=== PATIENT | female | born 1980 | race Caucasian/White ===

== ENCOUNTER 2021-01-31 05:40 | Day surgery (SDC) | payer OTHER ==
[2021-01-31] MEDS ORDERED: Lactated Ringers 1,000 ML IV SCH (07:00)
[2021-01-31] MEDS ORDERED: DIPRIVAN 200 MG/20 ML IV ONE (08:30)
[2021-01-31 09:20] VITALS: BP 113/75; PULSE 74; O2SAT 100
--- NOTE | 2021-01-31 11:09 | OP ---
SURGERY DATE/TIME: 01/31/2021 0807 PREOPERATIVE DIAGNOSES: 1) Abdominal pain. 2) Blood in the stool. POSTOPERATIVE DIAGNOSES: 1) Moderate gastritis. 2) Proctitis. 3) Diverticulosis of sigmoid colon. PROCEDURES: 1) EGD with cold forceps biopsy. 2) Colonoscopy with cold forceps biopsy. SURGEON: Dr. Rodriguez. ANESTHESIA: MAC. Medications given by anesthesia department. HISTORY: The patient is a 40 year-old white female who presents now for endoscopic evaluation with abdominal pain particularly in the epigastric region and she has been noting blood in the stool which was confirmed with heme-positive stool. The patient is felt to need have endoscopic evaluation. She was appraised of the risks of the procedure including the risk of perforation, phlebitis, untoward reaction to medication, bleeding and missed lesions. The patient verbalized her understanding and desired to have the procedure performed. DESCRIPTION OF PROCEDURE: The patient was given the medications by the anesthesia department. She had continuous pulse oximetry, ECG monitoring, intermittent blood pressure monitoring and tidal CO2 monitoring during the examination. She was placed in the left lateral decubitus position. A bite block was placed. The flexible Olympus gastroscope was used to intubate the oropharynx. A view of the larynx was normal. The scope was easily introduced in the esophagus which appeared to be essentially normal throughout its length. The stomach was entered where normal gastric rugal folds were seen and these distended nicely with insufflation of air. The scope was passed along the greater curvature of the stomach to the antrum. Pylorus encountered and intubated. Duodenum inspected and found to be normal. The scope is withdrawn towards the stomach. Again retroflex view was obtained of the lesser curvature, fundus and cardia regions of the stomach and these appeared to be essentially normal. The scope was then redirected to the gastric antrum. Biopsies were obtained from the area that appeared to be moderately erythematous. No erosions, lesions or ulcerations however were noted. Cold biopsies were obtained to rule out the presence of Helicobacter pylori-type organisms and to confirm the presence of gastritis. The scope was then removed from the patient. Next, a digital rectal examination was performed and revealed normal anal sphincter tone and no masses. The flexible Olympus pediatric colonoscope was used to intubate the rectum. A view of the colon was developed sequentially to the cecum including a short distance into the terminal ileum. Upon insertion and withdrawal, including a retroflex view in the rectum, there was noted to be what appeared to be some proctitis and there was moderate sigmoid diverticulosis present. Biopsies were obtained of the terminal ileum and in the rectum to rule out the presence of underlying inflammatory bowel disease. The scope was removed from the patient who tolerated the procedure well and was sent back to OP recovery in good condition. The prep was noted to be good.
== END 2021-01-31 09:30 | disposition home or self-care (01) ==
LOC: SDC 05:40
PROVIDERS: ATTEND Family Medicine
DX: K29.70 Gastritis, unspecified, without bleeding (principal); K92.1 Melena; R10.9 Unspecified abdominal pain; K62.89 Other specified diseases of anus and rectum; K57.30 Diverticulosis of large intestine without perforation or abscess without bleeding
CPT/HCPCS: J2704

== ENCOUNTER 2024-10-21 05:05 | Emergency (ER) | payer SELFPAY ==
[2024-10-21 05:19] VITALS: TEMP 98.4
--- NOTE | 2024-10-21 05:55 | ERPHSYRPT ---
- History of Present Illness Historian: patient Exam Limitations: no limitations Patient Subjective Stated Complaint: c/o left side abdominal pain Triage Nursing Assessment: Patient brought self to ED with c/o of abdominal pain that she is rtaing 06/06 that starts in her upper left quad and radiates down. patient's last BM and oral intake was yesterday. patient has bowel sounds in all 4 quads, denies vomitibg and diarrhea,. nontender with palpation, patient's vitals wnl, skin w/n/d, gait steady, patient doesn't appear to be in any distress at this time. Timing/Duration: today, hour(s) (3h) Activities at Onset: sleep Quality: sharpness Abdominal Pain Onset Location: periumbilical Pain Radiation: no radiation Severity of Pain-Max: moderate Severity of Pain-Current: moderate Modifying Factors: Improves With: nothing Associated Symptoms: No chest pain, No diaphoresis, No diarrhea, No fever/chills, No nausea, No vomiting Previous symptoms: no prior history Hx Tetanus, Diphtheria Vaccination/Date Given: Yes Hx Influenza Vaccination/Date Given: No Hx Pneumococcal Vaccination/Date Given: No <AMBER SCHROEDER - Last Filed: 10/21/24 06:46> <NALINI JASSO - Last Filed: 10/21/24 08:50> - History of Present Illness Time Seen by Provider: 10/21/24 05:42 Physician History: 43yo f presents via private vehicle for periumbilical pain that she reports started roughly 3h [employer], reports it woke her up from sleep. Pt denies any n/v/d. Pt reports the pain is sharp in nature, radiates several inches down from her umbilicus. Pt denies any vaginal bleeding or abdominal cramping. Pt reports hx of total hysterectomy > 10yrs ago, cholecystectomy > 5yrs ago. Pt denies any cp, sob. (AMBER SCHROEDER) Allergies/Adverse Reactions: No Known Drug Allergies Allergy (Verified 10/21/24 05:20) Home Medications: Levothyroxine Sodium [Synthroid] 50 mcg PO DAILY 08/20/14 [History] clonazePAM [Klonopin] 1 mg PO Q8HPRN PRN 08/20/14 [History] Venlafaxine HCl [Venlafaxine HCl ER] 150 mg PO DAILY 01/13/21 [History] Travel Risk - International Travel Have you traveled outside of the country in past 3 weeks: No - Emerging Infectious Disease Are you exhibiting symptoms associated with any current EIDs: Yes Symptoms: Abdominal Pain <AMBER SCHROEDER - Last Filed: 10/21/24 06:46> - Review of Systems Constitutional: No Symptoms Respiratory: No Symptoms Cardiac: No Symptoms Abdominal/Gastrointestinal: Abdominal Pain, No Nausea, No Vomiting, No Diarrhea, No Constipation, No Hematemesis, No Hematochezia, No Melena, No Appetite Changes Genitourinary Symptoms: No Symptoms <AMBER SCHROEDER - Last Filed: 10/21/24 06:46> - Past Medical History Pertinent Past Medical History: Yes Neurological History: Migraines ENT History: No Pertinent History Cardiac History: No Pertinent History Respiratory History: No Pertinent History Endocrine Medical History: Hypothyroidism Musculoskeletal History: No Pertinent History GI Medical History: GERD, Gallbladder Disease History: No Pertinent History Psycho-Social History: Anxiety, Depression Female Reproductive Disorders: Other Other Medical History: ANXIETY, DEPRESSION - Past Surgical History Past Surgical History: Yes Neuro Surgical History: No Pertinent History Cardiac: No Pertinent History Respiratory: No Pertinent History Gastrointestinal: Cholecystectomy Genitourinary: No Pertinent History Musculoskeletal: No Pertinent History Female Surgical History: Section, Hysterectomy Other Surgical History: 2 reconstructive surgery on nose, kidney biopsy in 2021, x 3 - Female History Hx Last Menstrual Period: total hysterectomy Hx Now: No - Social History Smoking Status: Never smoker Exposure to second hand smoke: No Drug Use: none - Social Determinants of Health Will the patient participate in the screening: Yes Do you worry about a steady place to live?: No Do you have any problems with any of the following?: No known problems In the past 12 months,have you had to go without utilities?: No Transportation Issues: No Has anyone in your support network made you feel unsafe?: No Have you or anyone in your house had to go without enough: No <AMBER SCHROEDER - Last Filed: 10/21/24 06:46> - Physical Exam General Appearance: no apparent distress, alert Respiratory Exam: normal breath sounds, lungs clear, airway intact, No chest tenderness, No respiratory distress Cardiovascular Exam: regular rate/rhythm, normal heart sounds, normal peripheral pulses, capillary refill <2 sec Gastrointestinal/Abdomen Exam: soft, normal bowel sounds, No tenderness, No distention, No guarding, No rebound SpO2 Interpretation: normal SpO2: 98 O2 Delivery: Room Air <AMBER SCHROEDER - Last Filed: 10/21/24 06:46> - Nursing Vital Signs Nursing Vital Signs: Initial Vital Signs Temperature 98.4 F 10/21/24 05:12 Pulse Rate 87 10/21/24 05:12 Respiratory Rate 20 10/21/24 05:12 Blood Pressure 143/86 10/21/24 05:12 O2 Sat by Pulse Oximetry 98 10/21/24 05:12 Pain Scale Pain Intensity 5 - Course EKG Interpreted by Me: RATE (78), Sinus Rhythm, Other (qtcb 421, not suggestive of acute ischemia) <ALEXNADREAMBER WERO - Last Filed: 10/21/24 06:46> <NALINI JASSO - Last Filed: 10/21/24 08:50> Ordered Tests: Active Orders 24 hr Category Date Time Status ABDOMEN AND PELVIS W CONTRAST [CT] Stat Exams 10/21/24 05:44 Completed CHEST 2 VIEWS (PA AND LAT) Stat Exams 10/21/24 05:44 Completed CBC W DIFF Stat Lab 10/21/24 06:20 Completed CMP Stat Lab 10/21/24 06:20 Completed HCG QUALITATIVE, SERUM Stat Lab 10/21/24 06:20 Completed LIPASE Stat Lab 10/21/24 06:20 Completed TROPONIN Q4H Lab 10/21/24 06:20 Completed TROPONIN Q4H Lab 10/21/24 09:45 Ordered TROPONIN Q4H Lab 10/21/24 13:45 Ordered UA W/RFX UR CULTURE Stat Lab 10/21/24 05:57 Completed Medication Summary Discontinued Medications Generic Name Dose Route Start Last Admin Trade Name Freq PRN Reason Stop Dose Admin Metronidazole 500 mg in 100 mls @ 200 mls/hr 10/21/24 07:49 10/21/24 07:57 Flagyl 500 Mg Ivpb IV 10/21/24 08:18 200 ml/hr STAT STA 200 mls/hr Administration Cefazolin Sodium 2 gm in 100 mls @ 200 mls/hr 10/21/24 07:49 10/21/24 08:33 Cefazolin 2 Gm/100 Ml Nacl IV 10/21/24 08:18 200 ml/hr STAT STA 200 mls/hr Administration Metronidazole Confirm 10/21/24 07:55 Flagyl 500 Mg Ivpb Administered 10/21/24 07:56 Dose 500 mg in 100 mls @ ud IV .STK-MED ONE Cefazolin Sodium Confirm 10/21/24 08:33 Cefazolin 2 Gm/100 Ml Nacl Administered 10/21/24 08:34 Dose 2 gm in 100 mls @ ud IV .STK-MED ONE Morphine Sulfate 2 mg 10/21/24 06:35 10/21/24 06:38 Morphine Sulfate 2 Mg/Ml Inj IV 10/21/24 06:36 2 mg STAT ONE Administration Morphine Sulfate Confirm 10/21/24 06:37 Morphine Sulfate 2 Mg/Ml Inj Administered 10/21/24 06:38 Dose 2 mg .ROUTE .STK-MED ONE Ondansetron HCl 4 mg 10/21/24 05:43 10/21/24 06:39 Ondansetron Hcl 4 Mg/2 Ml Vial IV 10/21/24 05:44 4 mg STAT ONE Administration Ondansetron HCl Confirm 10/21/24 06:37 Ondansetron Hcl 4 Mg/2 Ml Vial Administered 10/21/24 06:38 Dose 4 mg .ROUTE .STK-MED ONE Lab/Rad Data: Laboratory Result Diagrams 10/21/24 06:20 10/21/24 06:20 Laboratory Results 10/21/24 10/21/24 10/21/24 Range/Units 06:20 06:20 06:20 WBC (3.98-10.04) x10^3/uL RBC (3.93-5.22) x10^6/uL Hgb (11.2-15.7) g/dL Hct (34.1-44.9) % MCV (79.4-94.8) fL MCH (25.6-32.2) pg MCHC (32.2-35.5) g/dL RDW (11.7-14.4) % Plt Count (182-369) x10^3/uL MPV (9.4-12.3) fL Gran % (34.0-71.1) % Immature Gran % (Auto) (0.001-0.429) % Nucleat RBC Rel Count (0.00-0.2) % Eos # (Auto) (0.04-0.36) x10^3/uL Immature Gran # (Auto) (0.001-0.031) x10^3u/L Absolute Lymphs (auto) (1.18-3.74) x10^3/uL Absolute Monos (auto) (0.24-0.86) x10^3/uL Absolute Nucleated RBC (0.00-0.012) x10^3u/L Lymphocytes % (19.3-51.7) % Monocytes % (4.7-12.5) % Eosinophils % (0.7-5.8) % Basophils % (0.1-1.2) % Absolute Granulocytes (1.56-6.13) x10^3/uL Basophils # (0.01-0.08) x10^3/uL Sodium 136 (135-145) mmol/L Potassium 4.6 (3.5-5.1) mmol/L Chloride 101 (98-107) mmol/L Carbon Dioxide 31 H (22-30) mmol/L Anion Gap 8.8 (5-15) MEQ/L BUN 17 (7-17) mg/dL Creatinine 0.72 (0.52-1.04) mg/dL Estimated GFR 105.7 ML/MIN Glucose 113 H (74-106) mg/dL Calcium 9.4 (8.4-10.2) mg/dL Total Bilirubin 0.30 (0.2-1.3) mg/dL AST 31 (14-36) U/L ALT 47 H (0-35) U/L Alkaline Phosphatase 92 (38-126) U/L Troponin I < 0.012 (0.000-0.033) ng/mL Serum Total Protein 6.6 (6.3-8.2) g/dL Albumin 3.9 (3.5-5.0) g/dL Lipase 114 (23-300) U/L Serum HCG, Qual NEGATIVE (NEGATIVE) Urine Color (Yellow) Urine Appearance (Clear) Urine pH (4.6-8.0) Ur Specific [place] (1.005-1.030) Urine Protein (Negative) Urine Glucose (UA) (Negative) mg/dL Urine Ketones (Negative) Urine Blood (Negative) Urine Nitrite (Negative) Urine Bilirubin (Negative) Urine Urobilinogen (0.2) mg/dL Ur Leukocyte Esterase (Negative) U Hyaline Cast (Auto) (0-2) /LPF Urine Microscopic RBC (0-5) /HPF Urine Microscopic WBC (0-5) /HPF Ur Epithelial Cells (None Seen) /HPF Urine Bacteria (None Seen) /HPF Urine Culture Reflexed (NO) 10/21/24 10/21/24 Range/Units 06:20 05:57 WBC 14.0 H (3.98-10.04) x10^3/uL RBC 4.11 (3.93-5.22) x10^6/uL Hgb 12.2 (11.2-15.7) g/dL Hct 36.8 (34.1-44.9) % MCV 89.5 (79.4-94.8) fL MCH 29.7 (25.6-32.2) pg MCHC 33.2 (32.2-35.5) g/dL RDW 12.4 (11.7-14.4) % Plt Count 303 (182-369) x10^3/uL MPV 10.0 (9.4-12.3) fL Gran % 75.0 H (34.0-71.1) % Immature Gran % (Auto) 0.5 H (0.001-0.429) % Nucleat RBC Rel Count 0.0 (0.00-0.2) % Eos # (Auto) 0.32 (0.04-0.36) x10^3/uL Immature Gran # (Auto) 0.07 H (0.001-0.031) x10^3u/L Absolute Lymphs (auto) 2.16 (1.18-3.74) x10^3/uL Absolute Monos (auto) 0.88 H (0.24-0.86) x10^3/uL Absolute Nucleated RBC 0.00 (0.00-0.012) x10^3u/L Lymphocytes % 15.5 L (19.3-51.7) % Monocytes % 6.3 (4.7-12.5) % Eosinophils % 2.3 (0.7-5.8) % Basophils % 0.4 (0.1-1.2) % Absolute Granulocytes 10.47 H (1.56-6.13) x10^3/uL Basophils # 0.06 (0.01-0.08) x10^3/uL Sodium (135-145) mmol/L Potassium (3.5-5.1) mmol/L Chloride (98-107) mmol/L Carbon Dioxide (22-30) mmol/L Anion Gap (5-15) MEQ/L BUN (7-17) mg/dL Creatinine (0.52-1.04) mg/dL Estimated GFR ML/MIN Glucose (74-106) mg/dL Calcium (8.4-10.2) mg/dL Total Bilirubin (0.2-1.3) mg/dL AST (14-36) U/L ALT (0-35) U/L Alkaline Phosphatase (38-126) U/L Troponin I (0.000-0.033) ng/mL Serum Total Protein (6.3-8.2) g/dL Albumin (3.5-5.0) g/dL Lipase (23-300) U/L Serum HCG, Qual (NEGATIVE) Urine Color Yellow (Yellow) Urine Appearance Clear (Clear) Urine pH 6.5 (4.6-8.0) Ur Specific [place] 1.015 (1.005-1.030) Urine Protein Negative (Negative) Urine Glucose (UA) Negative (Negative) mg/dL Urine Ketones Negative (Negative) Urine Blood Negative (Negative) Urine Nitrite Negative (Negative) Urine Bilirubin Negative (Negative) Urine Urobilinogen 0.2 (0.2) mg/dL Ur Leukocyte Esterase Negative (Negative) U Hyaline Cast (Auto) NONE SEEN (0-2) /LPF Urine Microscopic RBC 0-2 (0-5) /HPF Urine Microscopic WBC 0-2 (0-5) /HPF Ur Epithelial Cells None Seen (None Seen) /HPF Urine Bacteria None Seen (None Seen) /HPF Urine Culture Reflexed NO (NO) CLINICAL HISTORY: upper abdominal pain COMPARISON: None. TECHNIQUE: A CT scan of the abdomen and pelvis was performed with IV contrast. 80cc of isovue 370 was administered intravenously. One of the following dose reduction techniques was utilized for this exam: Automated exposure control, adjustment of the mA and/or kV according to patient size, use of iterative reconstruction FINDINGS: The liver is normal in size. A relatively hypodense focal lesion is seen in segment VII in the portovenous phase (~ 15 x 12 mm in size) showing contrast filling-in in the delayed phase suggesting a hemangioma. No diffuse parenchymal abnormality. The portal vein, intrahepatic biliary radicals, and the bile ducts are normal. The spleen, pancreas, and adrenal glands are unremarkable. The kidneys are unremarkable. They are normal in size and shape. No calculi or hydronephrosis. Both kidneys demonstrate good excretory function. The gallbladder is surgically removed. A segment of the descending colon shows circumferential wall thickening on the background of multiple diverticula with extensive karol colonic fatty stranding denoting acute diverticulitis. No free air or associated collections at the time of scan. Non-complicated diverticula is seen in other large bowel segments. PatientID: [id number] Patient Name: ABAD SALCEDO Exam Date: 10/21/2024 Procedure: ABDOMEN AND PELVIS W CONTRAST page 1 of 2 No signs of acute appendicitis. No evidence of bowel obstruction. No suspiciously enlarged retroperitoneal lymph nodes and few small nodes are noted however likely reactionary in nature. Possible trace-free fluid in the pelvis. Narrow-neck fat-containing umbilical hernia (non-complicated). The urinary bladder is unremarkable. The uterus is not visualized. No gross adnexal lesions. No gross lytic or sclerotic lesions in the visualized spine. Scanned lung bases are unremarkable. IMPRESSION: 1. Acute diverticulitis involving the descending colon, no free air or loculated collections at time of the scan. 2. Hepatic focal lesion with perfusion parameters suggestive of a hemangioma. [facility] ER was called at [phone] at 6:29 AM CODE NUMBER STAMPER, 10/21/2024, and Stefanie (nurse) was informed regarding the significant medical findings. (NALINI JASSO) - Progress Progress: improved, pain not gone completely Counseled pt/family regarding: lab results, diagnosis, need for follow-up, rad results <NALINI JASSO - Last Filed: 10/21/24 08:50> Medical Desision Making - Diagnostic Testing Radiological Interpretation: Reviewed by me, Teleradiologist Report - Risk of complications Minimal Risk: Minimal risk of morbidity <AMBER SCHROEDER - Last Filed: 10/21/24 06:46> - Risk of complications The pt has a mod risk of morbidity or mortality based on: Need for prescription drug management <NALINI JASSO - Last Filed: 10/21/24 08:50> - Departure Departure Disposition: Home Critical Care Time: No <AMBER SCHROEDER - Last Filed: 10/21/24 06:46> - Departure Departure Disposition: Home <NALINI JASSO - Last Filed: 10/21/24 08:50> - Departure Clinical Impression: Periumbilical pain, Acute diverticulitis Condition: Stable Referrals: MADYSON LEI [Primary Care Provider] - Follow up/PCP as directed Instructions: Diverticulitis, Diverticulitis - Discharge instructions Additional Instructions: Discharge/Care Plan ABAD SALCEDO was seen on 10/21/24 in the Emergency Room. The patient was counseled regarding Diagnosis,Lab results, Imaging studies, need for follow up and when to return to the Emergency Room. Prescriptions given: Discharge Note I have spoken with the patient and/or caregivers. I have explained the patient's condition, diagnosis and treatment plan based on the information available to me at this time. I have answered the patient's and/or caregiver's questions and addressed any concerns. The patient and/or caregivers have as good understanding of the patient's diagnosis, condition and treatment plan as can be expected at this point. The vital signs have been stable. The patient's condition is stable and appropriate for discharge from the emergency department. The patient will pursue further outpatient evaluation with the primary care physician or other designated or consulting physician as outlined in the discharge instructions. The patient and/or caregivers are agreeable to this plan of care and follow-up instructions have been explained in detail. The patient and/or caregivers have received these instruction. The patient/and or caregivers are aware that any significant change in condition or worsening of symptoms should prompt an immediate return to this or the closest emergency department or call 911. ABAD SALCEDO was seen on 10/21/24 n the Emergency Room. At that time you were treated for an emergent condition, during your visit Laboratory, Radiology and/or other procedures may have been ordered. It is very important that you follow-up with your Primary Care Physician MADYSON LEI within the next 24-48 hours to review your Emergency Room visit and the final results of testing that was ordered. Some test results such as Urine Cultures, Blood Cultures, and other cultures if ordered will not be finalized for 24-48 hours. If you do not have a Primary Care Provider please call the medical records d epartment at [phone] ext [phone] to obtain a copy of your results or you may sign into our patient portal to obtain these results by visiting us @ [email or web address] and completing the following steps: 1. Click on the Patient Portal link 2. Click the Patient Self Enrollment Link to complete the enrollment form and entering your 3. Once the enrollment form is completed you will receive an email with a temporary ID and password at the email address you provided. 4. Next choose a user name and password. Your user name must be at least 4 characters long and your password must be at least 4 characters long. 5. Choose a security question from the list and provide your answer to the question. If you already have signed into the Health Portal you may access your Health Care Information 20/05 by the following steps: 1. Login to our website @ [email or web address] 2. Enter your original user name and password. FAQS [facility] Health Portal is an online tool that contains your Lab Results, Radiology Reports, Visit History, Discharge Instructions and Health Summary Lab and Radiology Results will not be available for 72 hours on the portal. The Portal is a secure site, passwords are encryted and URLs are re-written so they cannot be copied and pasted. You and authorized family members are the only ones who can access your Portal. Also there is a timeout feature that protects your information if you leave the Portal page open. If you have technical difficulty please use the Contact Us link on the page this will allow you to submit any questions you have regarding the Portal or you may contact the Medical Record Department at [phone] ext [phone]. Prescriptions: Ciprofloxacin [Cipro 500 MG] 500 mg PO BIDAC #20 tablet Metronidazole 500 mg [Flagyl 500 MG] 500 mg PO TID #21 tablet
[2024-10-21 06:28] LABS: Appearance Clear (Clear); Bacteria None Seen /HPF (None Seen); Bilirubin Negative (Negative); Blood Negative (Negative); Epithelial Cells None Seen /HPF (None Seen); Glucose, Urine Negative (Negative); Hyaline Casts NONE SEEN /LPF (0-2); Ketones Negative (Negative); Leukocyte Esterase Negative (Negative); Nitrite Negative (Negative); Ph 6.5 (4.6-8.0); Protein,Urine Dip Negative (Negative); RBC 0-2 /HPF (0-5); Specific Gravity 1.015 (1.005-1.030); Urobilinogen 0.2 mg/dL (0.2); WBC 0-2 /HPF (0-5)
[2024-10-21 06:29] LABS: Absolute Neutrophil Ct (ANC) 10.47 x10^3/uL (1.56-6.13); BASOPHIL % 0.4 % (0.1-1.2); Basophil (Absolute #) 0.06 x10^3/uL (0.01-0.08); Eosinophil % 2.3 % (0.7-5.8); Eosinophil (Absolute #) 0.32 x10^3/uL (0.04-0.36); Hematocrit 36.8 % (34.1-44.9); Hemoglobin 12.2 g/dL (11.2-15.7); IMMATURE GRAN # 0.07 x10^3u/L (0.001-0.031); IMMATURE GRAN % 0.5 % (0.001-0.429); Lymphocyte (Absolute #) 2.16 x10^3/uL (1.18-3.74); Lymphocytes % 15.5 % (19.3-51.7); Mean Cell Volume 89.5 fL (79.4-94.8); Mean Corpuscular Hemoglobin 29.7 pg (25.6-32.2); Mean Corpuscular Hgb Concent. 33.2 g/dL (32.2-35.5); Monocyte (Absolute #) 0.88 x10^3/uL (0.24-0.86); Monocytes % 6.3 % (4.7-12.5); Platelet Count 303 x10^3/uL (182-369); Red Blood Count 4.11 x10^6/uL (3.93-5.22); Red Cell Distribution Width 12.4 % (11.7-14.4)
[2024-10-21] MEDS ORDERED: Zofran 4 MG/2 ML VIAL ONE (06:37)
[2024-10-21] MEDS ORDERED: MORPHINE SULFATE 2 MG INJ ONE (06:37)
[2024-10-21] MEDS: MORPHINE SULFATE 2 MG INJ IV ONE (06:38)
[2024-10-21] MEDS: Zofran 4 MG/2 ML VIAL IV ONE (06:39)
[2024-10-21 06:46] LABS: ALBUMIN 3.9 g/dL (3.5-5.0); ANION GAP 8.8 MEQ/L (5-15); BILIRUBIN,TOTAL 0.3 mg/dL (0.2-1.3); Calcium 9.4 mg/dL (8.4-10.2); Creatinine 1 0.72 mg/dL (0.52-1.04); EST GLOMERULAR FILTRATION RATE 105.7 ML/MIN; Potassium 4.6 mmol/L (3.5-5.1); Total Protein 6.6 g/dL (6.3-8.2)
[2024-10-21 06:54] LABS: HCG SERUM TEST NEGATIVE (NEGATIVE)
[2024-10-21 07:17] VITALS: PULSE 86; RESP 17
--- NOTE | 2024-10-21 07:39 | XRAY ---
CLINICAL HISTORY: upper abdominal pain COMPARISON: None. TECHNIQUE: A CT scan of the abdomen and pelvis was performed with IV contrast. 80cc of isovue 370 was administered intravenously. One of the following dose reduction techniques was utilized for this exam: Automated exposure control, adjustment of the mA and/or kV according to patient size, use of iterative reconstruction FINDINGS: The liver is normal in size. A relatively hypodense focal lesion is seen in segment VII in the portovenous phase (~ 15 x 12 mm in size) showing contrast filling-in in the delayed phase suggesting a hemangioma. No diffuse parenchymal abnormality. The portal vein, intrahepatic biliary radicals, and the bile ducts are normal. The spleen, pancreas, and adrenal glands are unremarkable. The kidneys are unremarkable. They are normal in size and shape. No calculi or hydronephrosis. Both kidneys demonstrate good excretory function. The gallbladder is surgically removed. A segment of the descending colon shows circumferential wall thickening on the background of multiple diverticula with extensive karol colonic fatty stranding denoting acute diverticulitis. No free air or associated collections at the time of scan. Non-complicated diverticula is seen in other large bowel segments. No signs of acute appendicitis. No evidence of bowel obstruction. No suspiciously enlarged retroperitoneal lymph nodes and few small nodes are noted however likely reactionary in nature. Possible trace-free fluid in the pelvis. Narrow-neck fat-containing umbilical hernia (non-complicated). The urinary bladder is unremarkable. The uterus is not visualized. No gross adnexal lesions. No gross lytic or sclerotic lesions in the visualized spine. Scanned lung bases are unremarkable. IMPRESSION: 1. Acute diverticulitis involving the descending colon, no free air or loculated collections at time of the scan. 2. Hepatic focal lesion with perfusion parameters suggestive of a hemangioma. [facility] ER was called at [phone] at 6:29 AM HEEL BRUSHER, 10/21/2024, and Stefanie (nurse) was informed regarding the significant medical findings. Electronically Signed by: Wicho Millan MD. (10/21/2024 07:33:56 EST)
[2024-10-21] MEDS ORDERED: FLAGYL 500 MG IVPB 500 MG/100 ML BAG IV ONE (07:55)
[2024-10-21] MEDS: FLAGYL 500 MG IVPB 500 MG/100 ML BAG IV STA (07:57)
[2024-10-21] MEDS ORDERED: CEFAZOLIN 2 GM/100 ML NaCl 2 GM/100 ML IVPB IV ONE (08:33)
[2024-10-21] MEDS: CEFAZOLIN 2 GM/100 ML NaCl 2 GM/100 ML IVPB IV STA (08:33)
--- NOTE | 2024-10-21 08:37 | XRAY ---
Indication: Epigastric pain. Comparison: June 18, 2022 PA/lateral chest again demonstrates normal heart and lungs with a few incidental right hilar calcified granulomas. Bony thorax intact. No new/acute findings.
[2024-10-21 09:15] VITALS: BP 123/88; O2SAT 96
== END 2024-10-21 09:15 | disposition home or self-care (01) ==
LOC: ED 05:05
DX: K57.32 Diverticulitis of large intestine without perforation or abscess without bleeding (principal); R10.33 Periumbilical pain
CPT/HCPCS: 36415; 71046; 74177; 80053; 81001; 83690; 84484; 84703; 85025; 96365; 96368; 96374; 96375; 99284; 99285; J0690; J2270; J2405